=== PATIENT | male | born 1975 | race Caucasian/White ===

== ENCOUNTER 2017-04-22 11:06 | Emergency (ER) | payer OTHER ==
[~2017-04-22] VITALS: Ht 188 cm; Wt 97.5 kg
== END 2017-04-22 15:07 | disposition home or self-care (01) ==
LOC: CED 11:06
DX: L03.114 Cellulitis of left upper limb (principal); L03.113 Cellulitis of right upper limb; K21.9 Gastro-esophageal reflux disease without esophagitis; F17.200 Nicotine dependence, unspecified, uncomplicated
CPT/HCPCS: 87070; 87205; 99283; J2407; J7060